=== PATIENT | male | born 1985 | race Caucasian/White ===

== ENCOUNTER → 2017-11-07 | Outpatient (CLI) | payer BC | LOC: FIMAGING 13:39 | PROVIDERS: ATTEND Nurse Practitioner | DX: R22.31 Localized swelling, mass and lump, right upper limb (principal) ==

== ENCOUNTER 2017-11-22 11:14 | Inpatient (IN) | payer BC ==
[2017-11-22] MEDS ORDERED: NS 1,000 ML IV SCH (13:48)
[2017-11-22] MEDS ORDERED: ONDANSETRON 4 MG/2 ML VIAL IVP PRN (13:51)
[2017-11-22] MEDS ORDERED: ONDANSETRON DISINTEGRATING 4 MG TAB PO PRN (13:51)
[2017-11-22] MEDS ORDERED: VANCOMYCIN 1.25 GM in D5W 250 ML IV ONE (14:30)
--- NOTE | 2017-11-22 15:12 | GHP ---
[f rep st] HISTORY AND PHYSICAL DATE OF ADMISSION: 11/22/2017 CHIEF COMPLAINT: Fevers. HISTORY OF PRESENT ILLNESS: A 32-year-old male with a history of Hodgkin's lymphoma, actively receiv ing chemotherapy, who is status post his 2nd round of chemotherapy, which he completed 7 days ago. Riddhi cornelius reports that his early post-chemo completion days were uncomplicated, when yesterday, he devel oped fevers and associated myalgias. Denies any shortness of breath or cough associated. Denies any dysuria, hematuria. Denies nausea, vomiting, diarrhea. Denies any new rashes. Does report he had several pimples at his right jawline that were quite swollen and quite painful. He did pop and disru pt them over the course of the last several days. Remains tender over on his right jawline. Reports an aphthous ulcer at the back of his right soft palate, which has been improving since his completio n of this round of chemotherapy. Denies any dysphagia. Denies any dyspepsia. PAST MEDICAL HISTORY: Hodgkin's lymphoma. SOCIAL HISTORY: Negative for tobacco. Drinks occasional alcohol, but has not since he has been on c hemotherapy. Denies any marijuana or illicit drugs. FAMILY HISTORY: Negative for Hodgkin's lymphoma. REVIEW OF SYSTEMS: A 10-point review of systems is negative with the exception of that reported in t he HPI. PHYSICAL EXAMINATION: HEENT: The patient has an aphthous ulcer at the right base of his soft palate . Oropharynx otherwise clear. Mucous membranes appear dry. CARDIAC: Patient is tachycardic, but r egular. PULMONARY: Clear to auscultation bilaterally. Good respiratory effort. GASTROINTESTINAL: Positive bowel sounds. ABDOMEN: Soft and nontender. MUSCULOSKELETAL: Negative for any lower extr emity edema. SKIN: Negative for any rashes. There is notable erythema in the facial hair of his ri ght mandibular line associated with areas of follicular inflammation. NEUROLOGIC: He is alert and o riented x3. PSYCHIATRIC: He is pleasant and cooperative on interview and examination. DATA: White count is 0.8, hematocrit 33.0, platelets of 128. Sodium 136, creatinine 0.9. AST 16. LDH 467. Extremity ultrasound from 11/07/2017 reviewed, shows no deep venous thrombosis. ASSESSMENT AND PLAN: This is a 32-year-old male presenting with fever. 1. Neutropenic fever. Based on symptoms, it sounds like it may be viral in origin. However, carlos prater does have some concerning skin erythema on his face and discomfort in his back that may be consiste nt with urinary tract infection. We will send urinalysis. Blood cultures have already been obtained . Send a respiratory viral pathogen PCR, check a chest x-ray, and empirically start vancomycin and c efepime. If cultures remain negative at 24 hours, can certainly transition to a less broad antibioti c coverage and potentially discharge home. 2. Dehydration. We will aggressively fluid resuscitate and follow. 3. Sinus tachycardia. Suspect secondary to dehydration. We will again follow after we have treated his fever and his dehydration. 4. Prophylaxis with Lovenox. DIET: Regular. DISPOSITION: I expect greater than 2 midnights, as the patient is presenting with neutropenic fever and will need additional diagnostics, as well as IV fluids and IV antibiotics. I have discussed the case with Dr. Javier from Oncology. They will follow along with and make decisio ns related to colony-stimulating factors. /[id number]/MODL
[2017-11-22] MEDS: CEFEPIME HCL 2 GM in STERILE WATER INJ 12.5 ML IV SCH ×2 (15:18→20:55)
--- NOTE | 2017-11-22 15:22 | GCON ---
[f rep st] CONSULTATION ONCOLOGY INITIAL VISIT REASON FOR CONSULTATION: Evaluation and management of Hodgkin lymphoma. PRIMARY ONCOLOGIST: Dr. Cheryl Avery. HISTORY OF PRESENT ILLNESS: The patient is a 32-year-old gentleman who was diagnosed on October 17, 2017 with a stage IIA classic Hodgkin lymphoma. He was started on standard chemotherapy with ABVD o n October 31. Lymphadenopathy in the left side of his neck appears to be responding. He had his se cond dose on November 14, and he was a little neutropenic at the time, but was not having fever or any p roblems. He was actually seen on Sunday with a mouth sore, but no fever. ANC at the time was low. He was not placed on antibiotics at that time. Yesterday, his had their second child, and onur lora the day, he was having some chills. In the afternoon, he went home and basically went to bed and slept. This morning when he got up, he took his temperature, and it was 102. He denies any cough or diarrhea. A few days ago, he had some folliculitis in the right side of his face, and they swelled and were red, but they seemed to be calming down over the last couple days. Sense of taste has worse enedina, but no overt worsening soreness. He does have 1 sore on his soft palate that actually feels bet ter today. He was in the office, and his ANC was 0, and with a fever and was [facility]. ALLERGIES: No known drug allergies. HOME MEDICATIONS: Include chlorhexidine, Tylenol, ondansetron as needed, Magic mouthwash, lorazepam, viscous lidocaine, prochlorperazine. PAST MEDICAL HISTORY: Chronic illnesses include the lymphoma, as described above. PAST SURGICAL HISTORY: Unremarkable. SOCIAL HISTORY: He is . 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 Uses alcohol only occasionally. Is a nonsmoker. FAMILY HISTORY: Reveals no history of blood disorders or malignancies. REVIEW OF SYSTEMS: A 10-point review of systems performed. Pertinent positives as per HPI, otherwis e negative. PHYSICAL EXAM: VITAL SIGNS: Temperature on arrival was 38.2, pulse 108. Blood pressure is 130/73. GENERAL: He is fatigued appearing, but in no distress. HEENT: Sclerae nonicteric. Oral mucosa danyel ws no thrush, but he does have a lesion in his right soft palate. LUNGS: Clear. CARDIAC: Regular, although mildly tachycardic. ABDOMEN: Soft, nontender, without hepatosplenomegaly. NEURO: Grossly intact. SKIN: He has some healing folliculitis on the right side of his face. Arcadio exam reveals shrinking lymphadenopathy in his left neck. LABS: In the office, his white count was 0.8, with no neutrophils, hemoglobin 12.3, platelet count 1 28,000. Chemistries and LFTs are unremarkable. UA was unremarkable. IMPRESSION: 1. Febrile neutropenia. 2. Recent folliculitis. 3. Small mucosal ulcer. 4. Stage II Hodgkin lymphoma. There is not a clear-cut source, although I agree that the skin could be a source. I have spoken to the admitting hospitalist, and plan is to start him on broad-spectrum antibiotics and check his cultu res. If they remain negative and he is doing well, perhaps we can switch over to oral antibiotics, e ither Levaquin alone or Levaquin plus Augmentin, and he can go home in a day or two. I did not recom mend any growth factor at this time since there is a theoretical interaction between it and bleomycin , and we can see how fast he recovers. He is also being checked for viral infections, but even if th at is positive, we would need to cover him for bacterial with his very low neutrophil count. We will follow along with you in the hospital. /[id number]/MODL
[2017-11-22] MEDS: ENOXAPARIN 40 MG/0.4 ML SYR SC SCH (15:24)
[2017-11-22] MEDS: IBUPROFEN 600 MG TAB PO PRN ×2 (15:46→23:40)
[2017-11-22] MEDS: ACETAMINOPHEN 325 MG TAB PO PRN (18:46)
[2017-11-22] MEDS: NS 1,000 ML IV SCH (23:41)
[2017-11-23] MEDS: VANCOMYCIN 1.25 GM in NS 250 ML IV SCH ×2 (02:20→15:07)
[2017-11-23] MEDS: ACETAMINOPHEN 325 MG TAB PO PRN ×5 (05:03→21:43)
[2017-11-23] MEDS: CEFEPIME HCL 2 GM in STERILE WATER INJ 12.5 ML IV SCH ×3 (05:03→21:08)
[2017-11-23 06:25] LABS: PLATELET COUNT 116 10^3/uL (150-400)
[2017-11-23] MEDS: IBUPROFEN 600 MG TAB PO PRN ×2 (08:20→23:34)
--- NOTE | 2017-11-23 09:16 | PDMN ---
Medical Necessity Medical necessity: [id number] days: neutropenic fever- high risk pt currently on chemo- anticipate > 2 midnights ongoing med nec care
--- NOTE | 2017-11-23 09:22 | ASMTCMCOM ---
CM Note CM Note Notes: Pt with Hodgkin's lymphoma admitted for neutropenia fever. Pt will likely DC with oral ABX and havr no DC needs. Date Signed: 11/23/2017 09:22 AM Electronically Signed By:Shavonne Miller LCSW
--- NOTE | 2017-11-23 11:59 | SOAPPROG ---
SOAP Progress Note Assessment/Plan: E&M Hodgkins * Stage IIA Hodgkin's lymphoma: day 24, cycle 1 ABVD. Clinically responding. Further chemo on hold until recovers * Febrile neutropenia: cultures negative so far and cxr normal; still spiking temp. Continue broad spectrum antibiotics (vanc and cefepime); antipyretics. Recommend holding off growth factor as its benefit is modest and could have potential interaction with bleo. Whether to add with future cycles will be up to Dr. Avery. * Mucositis: salt and soda rinses Subjective: Fever and chills this morning. Mouth sore a little better. No diarrhea. Appetite decreased. Objective: Vital Signs Temp Pulse Resp BP Pulse Ox 37.0 C 86 18 112/61 97 11/23/17 11:48 11/23/17 11:48 11/23/17 11:48 11/23/17 11:48 11/23/17 11:48 Microbiology 11/22/17 18:55 Urine Culture - Final Urine,Clean Catch 11/22/17 14:30 Respiratory Panel (PCR) - Final Nasal, Sinus - Anaerobic Tube/Swab No Organism Detected Laboratory Results 11/23/17 06:15 11/23/17 06:15 11/22/17 11/23/17 11/24/17 05:59 05:59 05:59 Intake Total 4045 Output Total 2 Balance 4043 Laboratory Tests 11/23/17 06:15 WBC 0.59 L* Absolute Band Neuts 0.01 Physical Exam - Physical Exam General Appearance: no apparent distress EENT: other (ulcer right soft palate) Cardiac/Chest: tachycardia Abdomen: non-tender, soft ICD10 Worksheet Patient Problems: Problems Problem Status Onset Mucositis due to chemotherapy Acute Neutropenia, drug-induced Acute Febrile neutropenia Acute ~11/21/17 Hodgkin lymphoma of lymph nodes of head, face, or neck Acute ~10/2017
--- NOTE | 2017-11-23 12:21 | HOSPPROG ---
Hospitalist Progress Note Assessment/Plan: # acute neutropenic fever- patient is 7 days out from last chemotherapy- WBC 0.8 -> 0.5 this a.m. Tmax 39.4 this morning - blood cultures and urine culture NGTD - respiratory viral panel negative Chest x-ray(personally reviewed and interpreted) no infiltrates Oxygen saturations 95% on room air - continue empiric vancomycin and cefepime - continue Tylenol and ibuprofen p.r.n. - continue to monitor daily CBC # sepsis POA -(neutropenia, fever, tachycardia presentation) suspected source either skin, pulmonary or bacteremia - status post aggressive fluid resuscitation - continue empiric antibiotics # tachycardia- suspect related to the patient's fevers has improved overnight with Tylenol and fluids- continue supportive care # Hodgkin's lymphoma- patient responding well to help patient chemotherapy - no gross stimulating factors per Oncology as risk of interaction with bleomycin - continue to monitor # prophylaxis Lovenox # diet regular # disposition greater than 2 midnights as the patient is presenting with neutropenic fever remaining very febrile I have discussed the case with Dr. Javier-we will not use grow stimulating factors currently -continue to monitor closely Subjective: Denies nausea Objective: Vital Signs Temp Pulse Resp BP Pulse Ox 37.0 C 86 18 112/61 97 11/23/17 11:48 11/23/17 11:48 11/23/17 11:48 11/23/17 11:48 11/23/17 11:48 Microbiology 11/22/17 18:55 Urine Culture - Final Urine,Clean Catch 11/22/17 14:30 Respiratory Panel (PCR) - Final Nasal, Sinus - Anaerobic Tube/Swab No Organism Detected Laboratory Results 11/23/17 06:15 11/23/17 06:15 11/22/17 11/23/17 11/24/17 05:59 05:59 05:59 Intake Total 4045 Output Total 2 Balance 4043 - Physical Exam Constitutional: no apparent distress Eyes: anicteric sclera Ears, Nose, Mouth, Throat: moist mucous membranes Cardiovascular: regular rate and rhythym Respiratory: no respiratory distress ICD10 Worksheet Patient Problems: Problems Problem Status Onset Febrile neutropenia Acute ~11/21/17 Hodgkin lymphoma of lymph nodes of head, face, or neck Acute ~10/2017 Mucositis due to chemotherapy Acute Neutropenia, drug-induced Acute
[2017-11-23] MEDS: ENOXAPARIN 40 MG/0.4 ML SYR SC SCH (17:56)
[2017-11-23] MEDS: NS 1,000 ML IV SCH (20:05)
[2017-11-24] MEDS: VANCOMYCIN 1.25 GM in NS 250 ML IV SCH ×5 (02:01→22:57)
[2017-11-24] MEDS: CEFEPIME HCL 2 GM in STERILE WATER INJ 12.5 ML IV SCH ×3 (05:13→21:09)
[2017-11-24] MEDS: ACETAMINOPHEN 325 MG TAB PO PRN ×4 (05:13→19:22)
[2017-11-24] MEDS: NS 1,000 ML IV SCH ×2 (05:22→22:56)
[2017-11-24 05:27] LABS: PLATELET COUNT 130 10^3/uL (150-400)
[2017-11-24] MEDS: IBUPROFEN 600 MG TAB PO PRN ×2 (08:52→22:57)
[2017-11-24] MEDS: ENOXAPARIN 40 MG/0.4 ML SYR SC SCH (08:53)
[2017-11-24] MEDS ORDERED: MBX SOLN 30 ML BOTTLE PO PRN (10:13)
[2017-11-24] MEDS ORDERED: BIOTENE DRY MOUTH MOUTHWASH 237 ML BTL MM PRN (10:13)
[2017-11-24] MEDS: NYSTATIN SUSP 500000 UNIT/5 ML UDCUP PO PRN ×2 (11:32→21:09)
--- NOTE | 2017-11-24 12:35 | SOAPPROG ---
SOAP Progress Note Assessment/Plan: Assessment: 1. Hodgkins lymphoma, stage IIA. s/p 1 cycle ABVD 2. Febrile neutropenia Neutrophils still quite low though WBC rising and fever curve falling. Plan: - continue current abx - no GCSF for now, given concern re: potentiation of bleomycin toxicity - if remains afebrile and cultures negative, can consider d/c in 1-2 days on empiric oral abx (eg levofloxacin) - due for C2D1 on 11/28. Will repeat PET-CT after this cycle. If good response , could be a candidate for completion of Rx with radiation therapy to involved sites and no further chemo. will defer those decisions to Dr. Avery in the outpatient setting. 25min spent w/ pt and in coordination of care. 11/24/17 12:33 Subjective: feeling better today. Objective: exam: NAD three crusted furuncles on R cheek, no erythema Lungs CTAB CV RRR no MGR Abd: +BS NT ND Ext: no edema Neuro: a+ox3 Vital Signs Temp Pulse Resp BP Pulse Ox 36.8 C 91 16 108/69 98 11/24/17 11:59 11/24/17 11:59 11/24/17 11:59 11/24/17 11:59 11/24/17 11:59 Laboratory Results 11/24/17 05:00 11/24/17 05:00 11/23/17 11/24/17 11/25/17 05:59 05:59 05:59 Intake Total 4045 4350 Output Total 2 Balance 4043 4350 ICD10 Worksheet Patient Problems: Problems Problem Status Onset Febrile neutropenia Acute ~11/21/17 Hodgkin lymphoma of lymph nodes of head, face, or neck Acute ~10/2017 Mucositis due to chemotherapy Acute Neutropenia, drug-induced Acute
--- NOTE | 2017-11-24 14:07 | HOSPPROG ---
Hospitalist Progress Note Assessment/Plan: # Acute neutropenic fever- patient is >7 days out from last chemotherapy- WBC 0.8 -> 1.2 this a.m.- ANC remains low Tmax 39.4 yest morning - blood cultures and urine culture NGTD - respiratory viral panel negative- fever curve downtrending Chest x-ray (personally reviewed and interpreted) no infiltrates Oxygen saturations 95% on room air - continue empiric vancomycin and cefepime - continue Tylenol and ibuprofen p.r.n. - continue to monitor daily CBC # Sepsis POA -(neutropenia, fever, tachycardia presentation) suspected source either skin, pulmonary or bacteremia- all cultures NGTD - status post aggressive fluid resuscitation - continue empiric antibiotics # tachycardia- suspect related to the patient's fevers has improved overnight with Tylenol and fluids- continue supportive care # Hodgkin's lymphoma- patient responding well to help patient chemotherapy - no gross stimulating factors per Oncology as risk of interaction with bleomycin - continue to monitor # prophylaxis Lovenox # diet regular # disposition greater than 2 midnights as the patient is presenting with neutropenic fever remaining very febrile I have discussed the case with RN - will trial different options for mouthwash and lidocaine S patient experiencing office ulcers in his posterior oropharynx Subjective: Still feels exhausted Objective: Vital Signs Temp Pulse Resp BP Pulse Ox 36.8 C 91 16 108/69 98 11/24/17 11:59 11/24/17 11:59 11/24/17 11:59 11/24/17 11:59 11/24/17 11:59 Laboratory Results 11/24/17 05:00 11/24/17 05:00 11/23/17 11/24/17 11/25/17 05:59 05:59 05:59 Intake Total 4045 4350 Output Total 2 Balance 4043 4350 - Physical Exam Constitutional: no apparent distress Eyes: anicteric sclera Ears, Nose, Mouth, Throat: moist mucous membranes Cardiovascular: regular rate and rhythym Respiratory: no respiratory distress Gastrointestinal: normoactive bowel sounds Genitourinary: no bladder fullness Skin: warm Musculoskeletal: No asymmetric calves Neurologic: AAOx3 Psychiatric: interacting appropriately Lymph, Heme, Immunologic: no cervical LAD ICD10 Worksheet Patient Problems: Problems Problem Status Onset Febrile neutropenia Acute ~11/21/17 Hodgkin lymphoma of lymph nodes of head, face, or neck Acute ~10/2017 Mucositis due to chemotherapy Acute Neutropenia, drug-induced Acute
[2017-11-25] MEDS: ACETAMINOPHEN 325 MG TAB PO PRN ×5 (05:32→23:12)
[2017-11-25] MEDS: CEFEPIME HCL 2 GM in STERILE WATER INJ 12.5 ML IV SCH ×3 (05:37→23:04)
[2017-11-25 05:44] LABS: PLATELET COUNT 135 10^3/uL (150-400)
[2017-11-25] MEDS: VANCOMYCIN 1.25 GM in NS 250 ML IV SCH ×2 (06:16→16:22)
[2017-11-25] MEDS: GLUTAMINE (GLUTASOLVE) 1 EACH PKT PO SCH ×2 (08:31→19:39)
[2017-11-25] MEDS ORDERED: oxyCODONE IR 5 MG TAB PO PRN (09:52)
--- NOTE | 2017-11-25 09:52 | SOAPPROG ---
SOAP Progress Note Assessment/Plan: Assessment: 1. Hodgkins lymphoma, stage IIA. s/p 1 cycle ABVD 2. Febrile neutropenia Febrile again last night but hemodynamically stable. Most likely source is oropharyngeal. Plan: - continue current abx - no GCSF for now, given concern re: potentiation of bleomycin toxicity, and WBC is rising - will order repeat blood bx - if still febrile tomorrow and WBC not recoveed, can consider antifungal coverage - lidocaine topically for pain; can also use oxycodone 30min spent w/ pt and in coordination of care. 11/24/17 12:33 11/25/17 09:51 Subjective: feels tired today. Sore in throat hurting. Objective: Exam: tired appearing healing sore in posterior pharynx R neck node mildly enlarged Lungs CTAB CV RRR no MGR Abd: +BS NT ND Ext: no edema Neuro: a+ox3 Vital Signs Temp Pulse Resp BP Pulse Ox 38.6 C H 105 H 17 130/75 H 95 11/25/17 07:59 11/25/17 07:59 11/25/17 07:59 11/25/17 07:59 11/25/17 07:59 Laboratory Results 11/25/17 05:37 11/24/17 05:00 11/24/17 11/25/17 11/26/17 05:59 05:59 05:59 Intake Total 4350 5120 Balance 4350 5120 ICD10 Worksheet Patient Problems: Problems Problem Status Onset Febrile neutropenia Acute ~11/21/17 Hodgkin lymphoma of lymph nodes of head, face, or neck Acute ~10/2017 Mucositis due to chemotherapy Acute Neutropenia, drug-induced Acute
[2017-11-25] MEDS ORDERED: ACETAMINOPHEN 650 MG/20.3 ML UDCUP PO PRN (11:38)
--- NOTE | 2017-11-25 11:45 | HOSPPROG ---
Hospitalist Progress Note Assessment/Plan: # Acute neutropenic fever- patient is >7 days out from last chemotherapy- WBC 0.8 -> 2.7 this a.m.- ANC remains low Tmax 38.4 yest afternoon - blood cultures and urine culture NGTD - respiratory viral panel negative- fever curve continues to downtrend Chest x-ray (personally reviewed and interpreted) no infiltrates Oxygen saturations 95% on room air - continue empiric vancomycin and cefepime - repeat blood cultures drawn today - continue Tylenol and ibuprofen p.r.n. - continue to monitor daily CBC # Sepsis POA -(neutropenia, fever, tachycardia presentation) suspected source oropharyngeal- all cultures NGTD - status post aggressive fluid resuscitation - continue empiric antibiotics # mucositis- patient was new very painful oral lesion left posterior oropharynx - continue aggressive oral care - continue topical viscous lidocaine - p.r.n. Oxycodone # tachycardia- suspect related to the patient's fevers has improved overnight with Tylenol and fluids- continue supportive care # Hodgkin's lymphoma- patient responding well to help patient chemotherapy - no gross stimulating factors per Oncology as risk of interaction with bleomycin - continue to monitor # prophylaxis Lovenox # diet regular # disposition greater than 2 midnights as the patient is presenting with neutropenic fever remaining very febrile I have discussed the case with RN - will discuss mucositis with Dr. Tavarez Subjective: Feels wiped out mouth is very painful Objective: Vital Signs Temp Pulse Resp BP Pulse Ox 38.6 C H 105 H 17 130/75 H 95 11/25/17 07:59 11/25/17 07:59 11/25/17 07:59 11/25/17 07:59 11/25/17 07:59 Laboratory Results 11/25/17 05:37 11/24/17 05:00 11/24/17 11/25/17 11/26/17 05:59 05:59 05:59 Intake Total 4350 5120 Balance 4350 5120 - Physical Exam Constitutional: chronically ill appearing Eyes: anicteric sclera Ears, Nose, Mouth, Throat: oral ulcer Cardiovascular: No edema Respiratory: no respiratory distress Gastrointestinal: No distension Genitourinary: no bladder fullness Skin: warm Musculoskeletal: No asymmetric calves Neurologic: AAOx3 Psychiatric: interacting appropriately Lymph, Heme, Immunologic: no cervical LAD ICD10 Worksheet Patient Problems: Problems Problem Status Onset Febrile neutropenia Acute ~11/21/17 Hodgkin lymphoma of lymph nodes of head, face, or neck Acute ~10/2017 Mucositis due to chemotherapy Acute Neutropenia, drug-induced Acute
[2017-11-25 11:48] VITALS: RESP 16
[2017-11-25] MEDS: ENOXAPARIN 40 MG/0.4 ML SYR SC SCH (15:10)
[2017-11-25] MEDS: NYSTATIN SUSP 500000 UNIT/5 ML UDCUP PO PRN ×2 (15:28→20:05)
[2017-11-25] MEDS: VANCOMYCIN 1.5 GM in NS 250 ML IV SCH ×2 (16:21→23:05)
[2017-11-25] MEDS: NS 1,000 ML IV SCH (19:53)
[2017-11-25] MEDS: LIDOCAINE 2% VISCOUS 15 ML UDCUP PO PRN (23:07)
[2017-11-26] MEDS: ACETAMINOPHEN 325 MG TAB PO PRN ×2 (03:08→07:53)
[2017-11-26 03:09] VITALS: O2SAT 94
[2017-11-26] MEDS: LIDOCAINE 2% VISCOUS 15 ML UDCUP PO PRN (03:15)
[2017-11-26] MEDS: CEFEPIME HCL 2 GM in STERILE WATER INJ 12.5 ML IV SCH (05:47)
[2017-11-26 07:50] VITALS: BP 124/81; PULSE 84; TEMP 98.2
[2017-11-26] MEDS: VANCOMYCIN 1.5 GM in NS 250 ML IV SCH (07:55)
[2017-11-26] MEDS: ENOXAPARIN 40 MG/0.4 ML SYR SC SCH (08:46)
--- NOTE | 2017-11-26 12:12 | ASMTLACE ---
LACE Length of stay for Answers: 4-6 days current admission Acuity / Level of Answers: Yes Care: Did the patient have an inpatient admission? Comorbidities - select Answers: Any tumor (including all that apply lymphoma or leukemia) # of Emergency department Answers: 0 visits in the last 6 months Score: 9 Date Signed: 11/26/2017 12:12 PM Electronically Signed By:Linda Sargent RN
--- NOTE | 2017-11-26 12:12 | ASMTCMCOM ---
CM Note CM Note Notes: patient medically cleared for discharge to home. No needs at this time. CM available should needs arise. Date Signed: 11/26/2017 12:11 PM Electronically Signed By:Linda Sargent RN
--- NOTE | 2017-11-26 14:18 | GDS ---
[f rep st] DISCHARGE SUMMARY DISCHARGE DIAGNOSES: Include: 1. Acute neutropenic fever. 2. Leukopenia secondary to chemotherapy. 3. Sepsis, presumed secondary to oropharyngeal source. 4. Mucositis secondary to chemotherapy. 5. Sinus tachycardia secondary to sepsis and fever. 6. Hodgkin lymphoma. HISTORY OF PRESENT ILLNESS: A 32-year-old male, actively receiving chemotherapy for Hodgkin lymphoma , who presents with complaints of fevers for details of patient's initial presentation please see the History and Physical dated 11/22/2017. CONSULTATIVE SERVICES: Oncology. PROCEDURES: On 11/22/2017, patient had a PA and lateral chest x-ray that showed no acute infiltrates . HOSPITAL COURSE BY ISSUE: 1. Acute neutropenic fever. Patient presented with a white count of 0.8 and high fevers, peaking at 39.7. Patient was admitted, had urine cultures, blood cultures, chest x-ray, all of which were nega tive and remained negative during his hospital stay. As the patient remained in the hospital, his wh ite count nadired at 0.5 and, on the day of disposition, had recovered to 6.97. Patient has not had a fever in 24 hours at the time of disposition and is symptomatically markedly improved. He empirica lly received vancomycin and cefepime while inpatient. He is being transitioned to oral levofloxacin 750 daily to complete a 7-day course outpatient. He will be seen by Oncology in 48 hours time for la b check and decisions related to his next round of chemotherapy item. 2. Pancytopenia secondary to chemotherapy. As described above, his white counts did rebound. His h emoglobin was 9.2 and stable on the day of disposition, and his platelet counts improved to 174. 3. Acute mucositis. This had been previously present but worsened during his acute stay. He will c ontinue aggressive mouth care and be followed closely by [facility] in the outpatie nt setting. 4. Sepsis. Patient presented tachycardic, febrile with leukopenia. Presumed source was oropharynge al. Received empiric antibiotics. On the day of disposition, his blood cultures, urine cultures all remain negative. He will be followed by [facility]. MEDICATIONS AT THE TIME OF DISPOSITION: Please reference the med rec printed on 11/26/2017. FOLLOWUP APPOINTMENTS: Include in 2 days time with his outpatient oncology team. PENDING STUDIES: At the time of this dictation include blood cultures, drawn 11/25/2017, which are p reliminary no growth to date. I spent greater than 30 minutes in the planning and coordination of this discharge. /[id number]/MODL
--- NOTE | 2017-11-26 15:05 | ASDISCHSUM ---
Discharge Information Plan Status:Home with No Needs Medically Cleared to Leave:11/26/2017 Discharge Date:11/26/2017 11:24 AM CM D/C Disposition:Home, Routine, Self-Care ADT D/C Disposition:Home, Routine, Self-Care Projected Discharge Date:11/26/2017 11:24 AM Transportation at D/C:Family Discharge Delay Reason: Follow-Up Date:11/26/2017 11:24 AM Discharge Slot: Final Diagnosis: Placement Information Patient Contact Information Contact Name:[id number] Relationship: Address: Home Phone: Work Phone: City: Alternate Phone: [place] Mobile Code: Email: Financial Information Financial Class:HMO and PPO Plans Primary Plan Desc: OUT OF STATE PPO Primary Plan Number:[id number] Secondary Plan Desc: Secondary Plan Number: Assessment Information LACE LACE Length of stay for Answers: 4-6 days current admission Acuity / Level of Answers: Yes Care: Did the patient have an inpatient admission? Comorbidities - select Answers: Any tumor (including all that apply lymphoma or leukemia) # of Emergency department Answers: 0 visits in the last 6 months Score: 9 Date Signed: 11/26/2017 12:12 PM Electronically Signed By:Linda Sargent RN [facility] CM Progress Note CM Note CM Note Notes: Pt with Hodgkin's lymphoma admitted for neutropenia fever. Pt will likely DC with oral ABX and havr no DC needs. Date Signed: 11/23/2017 09:22 AM Electronically Signed By:Shavonne Miller LCSW [facility] CM Progress Note CM Note CM Note Notes: patient medically cleared for discharge to home. No needs at this time. CM available should needs arise. Date Signed: 11/26/2017 12:11 PM Electronically Signed By:Linda Sargent RN Case Management Discharge Plan Note Case Management Discharge Discharge Order Complete? Answers: Yes Patient to Obtain Answers: Independently Medications Transportation Arranged Answers: Family/Friends Family Notified Answers: Yes Date Signed: 11/26/2017 12:13 PM Electronically Signed By:Linda Sargent RN Intervention Information
== END 2017-11-26 11:24 | disposition home or self-care (01) | DRG 871 ==
LOC: OBSVTOIN 13:37 → F1N 13:37
PROVIDERS: ADMIT Hospitalist; ATTEND Hospitalist
DX: A41.9 Sepsis, unspecified organism (principal); D61.810 Antineoplastic chemotherapy induced pancytopenia; C81.71 Other Hodgkin lymphoma, lymph nodes of head, face, and neck; D70.1 Agranulocytosis secondary to cancer chemotherapy; R50.81 Fever presenting with conditions classified elsewhere; K12.32 Oral mucositis (ulcerative) due to other drugs; T45.1X5A Adverse effect of antineoplastic and immunosuppressive drugs, initial encounter; E86.0 Dehydration; L73.9 Follicular disorder, unspecified
CPT/HCPCS: J0692; J1642; J1650; J3370